=== PATIENT | female | born 1960 | race Caucasian/White ===

== ENCOUNTER 2025-01-24 07:32 | Day surgery (SDC) | payer MEDICARE, OTHER ==
[~2025-01-24] VITALS: Ht 170.2 cm; Wt 65.3 kg
[~2025-01-24 07:32] MED LIST: CYAN100017 IM; GABA-1490 PO; LEVO100T5 PO; LINZ290C PO; METF10004 PO; MONT10TA97 PO; NEBI2.5T PO; PANT20TA6 PO; PHENYLEPHRINE 10% OPHTH SOL 5ML OD PRN; PLEC3TAB PO; SEMA0.257 PO; SIMV10TA21 PO; VALA500T5 PO
[2025-01-24] MEDS: OFLOXACIN 0.3 % (OCUFLOX) OPTH SOL 5ML OD ONE (08:40)
[2025-01-24] MEDS ORDERED: MIDAZOLAM INJ 2 MG/2 ML VIAL As Ordered ONE (08:41)
[2025-01-24] MEDS: LIDOCAINE 3.5% 1 ML OPHTH TOPICAL GEL OU ONE (08:50)
[2025-01-24] MEDS: CYCLOPENTOLATE 1% OPHTH SOLN 2 ML BTL OD SCH (08:58)
[2025-01-24] MEDS: PHENYLEPHRINE 2.5% OPHTH SOL 2ML OD SCH (08:58)
[2025-01-24] MEDS: TROPICAMIDE 1% OPHTH SOLN 15ML OD SCH (08:58)
[2025-01-24] MEDS: LIDOCAINE 1% SDV 5 ML VIAL As Ordered ONE (09:03)
[2025-01-24] MEDS: CEFUROXIME 1 MG/0.1 ML INTRACAMERAL INJ As Ordered ONE (09:03)
[2025-01-24] MEDS: BSS IRRIG/VANCO(10MG)/TOBRA(5MG)/EPINEPH(1:1000-0.5CC)500ML BAG-ORONLY As Ordered ONE (09:03)
[2025-01-24 09:40] VITALS: BP 115/69; TEMP 96.2; O2SAT 98
== END 2025-01-24 09:45 | disposition home or self-care (01) ==
LOC: M SDC 07:32
PROVIDERS: ATTEND Ophthalmology
DX: H25.11 Age-related nuclear cataract, right eye (principal); E03.9 Hypothyroidism, unspecified; I10 Essential (primary) hypertension; E78.00 Pure hypercholesterolemia, unspecified; K21.9 Gastro-esophageal reflux disease without esophagitis; Z79.899 Other long term (current) drug therapy; Z79.890 Hormone replacement therapy; Z79.84 Long term (current) use of oral hypoglycemic drugs; Z98.42 Cataract extraction status, left eye; Z85.828 Personal history of other malignant neoplasm of skin; Z90.710 Acquired absence of both cervix and uterus; Z88.5 Allergy status to narcotic agent; Z90.89 Acquired absence of other organs
CPT/HCPCS: 66984; 92015; J0697; J2250; J3010; V2788